=== PATIENT | female | born 1930 | race African-American/Black ===

== ENCOUNTER 2020-08-01 14:15 | Emergency (ER) | payer MEDICARE ==
[~2020-08-01] VITALS: Ht 152.4 cm; Wt 59.0 kg
[2020-08-01 14:16] VITALS: BP 152/90
[2020-08-01] MEDS ORDERED: Insulin Human Regular 100units/ml 3ml IV ONE (14:30)
--- NOTE | 2020-08-01 14:33 | Emergency Room Report ---
History of Present Illness General Chief Complaint: Syncope Source: Patient, Family Member, EMS Present Illness HPI Patient is an 89-year-old female brought in by EMS for syncopal episode. Patient had loss of consciousness at home. Was assisted to the ground by family member. Prior history of diabetes. She was having moderate headache. Had left brief loss of consciousness lasting several minutes. Was noted to have blood sugar that was measured as high does not know her medications. Allergies: Coded Allergies: No Known Allergies (Unverified , 08/01/20) COVID-19 Screening Contact w/high risk pt: No Experienced COVID-19 symptoms?: No COVID-19 Testing performed CAREER PROFESSIONAL: No Patient History Past Medical History: see triage record Last Menstrual Period: na Reviewed Nursing Documentation: PMH: Agreed; PSxH: Agreed Nursing Documentation-PMH Past Medical History: No History, Except For Hx Hypertension: Yes Hx Diabetes: Yes Review of Systems All Other Systems: limited - Noted by poor historian. Physical Exam Vital Signs Date Time Temp Pulse Resp B/P (MAP) Pulse Ox O2 Delivery O2 Flow Rate FiO2 08/01/20 14:12 98.1 68 19 152/90 (110) 99 Room Air Sp02 EP Interpretation: reviewed, normal General Appearance: no apparent distress, alert, GCS 15, Chronically Ill Head: atraumatic ENT: normal ENT inspection, hearing grossly normal, normal voice Neck: normal inspection, full range of motion, supple, no bony tend Respiratory: normal inspection, lungs clear, normal breath sounds, no respiratory distress, no retraction, no wheezing Cardiovascular #1: regular rate, rhythm, no edema Gastrointestinal: normal inspection, normal bowel sounds, non tender, soft, no guarding, no hernia Genitourinary: no CVA tenderness Musculoskeletal: normal inspection, back normal, normal range of motion Neurologic: alert, motor strength/tone normal, office equipment mechanic III-XII nml as tested, oriented x3, responsive, speech normal, normal inspection Psychiatric: normal inspection, judgement/insight normal, mood/affect normal Skin: no rash Procedures Critical Care Time Critical Care Time patient had a critical medical condition which untreated could potentially result in life or limb threatening injury. Total critical care time excluding procedures approximately 45 minutes. Medical Decision Making Diagnostic Impression: Primary Impression: Syncope Additional Impressions: Abnormal EKG Acute [place] ER Course Patient presented for syncopal episode. Differential diagnosis include was not limited to anemia, coronavirus infection, electrolyte normality, orthostatic hypotension, sepsis among others. EKG interpreted by me showed normal sinus rhythm with a rate of 66 ST elevation in leads V3 V4. Patient does not have any active chest pain however given the history of diabetes this was not necessarily reliable. EKG did show some evidence of possible anterior infarct and patient does have some septal and anterior Q waves. Patient started on IV fluids as well as IV insulin. [facility] was contacted for possible STEMI transfer. Chest x- ray showed bilateral hazy infiltrate with slight cardiomegaly. Patient was give n aspirin.Patient subsequently had an atrial flutter with rapid ventricular response was given IV Cardizem.Patient states that she would like CPR as well as intubation if needed. Patient stated that she would be okay with having cardiac catheterization procedure. Patient was discussed with Dr. Vidal who agreed to accept the patient for possible revascularization procedure. EKG Diagnostic Results Rate: normal Rhythm: NSR ST Segments: no acute changes Last Vital Signs Date Time Temp Pulse Resp B/P (MAP) Pulse Ox O2 Delivery O2 Flow Rate FiO2 08/01/20 14:12 98.1 68 19 152/90 (110) 99 Room Air Status: improved Disposition: SHORT-TERM HOSP Condition: Critical Jorge Elliott MD Aug 01, 2020 14:33
[2020-08-01] MEDS ORDERED: Aspirin Baby 81mg ONE (14:35)
[2020-08-01] MEDS ORDERED: dilTIAZem HCl 25mg/5ml Inj IVP ONE (14:45)
[2020-08-01] MEDS ORDERED: Aspirin Baby 81mg ORAL ONE (14:45)
[2020-08-01 15:04] VITALS: BP 128/66
[2020-08-01 15:06] LABS: HEMATOCRIT 44.7 % (37.0-47.0); HEMOGLOBIN 14.5 G/DL (12.0-16.0); MEAN CORPUSCULAR VOLUME 95 FL (80-99); PLATELET COUNT 170 K/UL (150-450); RED BLOOD COUNT 4.72 M/UL (4.20-5.40); RED CELL DISTRIBUTION WIDTH 12.8 % (11.6-14.8); WHITE BLOOD COUNT 14.6 K/UL (4.8-10.8)
--- NOTE | 2020-08-01 15:07 | Diagnostic Imaging Report ---
Indications: Syncopal episode, loss of consciousness Technique: Spiral acquisitions obtained through the brain. Angled axial and coronal 5 x 5 mm slices were reconstructed. Total dose length product 965 mGycm. CTDI vol(s) 53 mGy. Dose reduction achieved using automated exposure control Comparison: None. Findings: There is age-related enlargement of the ventricles and extra axial CSF spaces. There is periventricular deep white matter low-attenuation, consistent with chronic microvascular ischemic change. Old lacunar infarct is seen in the right basal ganglia. No acute intracranial hemorrhage or edema, mass effect, nor midline shift. Intact calvarium. Visualized orbits and sinuses are unremarkable. The mastoids are clear Impression: Chronic and age-related changes Negative for acute intracranial bleed or mass effect The CT scanner at [facility] is accredited by the [employer] and the scans are performed using protocols designed to limit radiation exposure to as low as reasonably achievable to attain images of sufficient resolution adequate for diagnostic evaluation.
[2020-08-01 15:18] LABS: ALANINE AMINOTRANSFERASE 18 U/L (12-78); ALBUMIN 3.4 G/DL (3.4-5.0); ALBUMIN/GLOBULIN RATIO 0.8 (1.0-2.7); ALKALINE PHOSPHATASE 83 U/L (46-116); ANION GAP 15 mmol/L (5-15); ASPARTATE AMINO TRANSFERASE 17 U/L (15-37); BILIRUBIN,TOTAL 0.4 MG/DL (0.2-1.0); BLOOD UREA NITROGEN 30 mg/dL (7-18); CALCIUM 9.7 MG/DL (8.5-10.1); CARBON DIOXIDE 22 MMOL/L (21-32); CHLORIDE 98 MMOL/L (98-107); CREATININE 1.5 MG/DL (0.55-1.30); SODIUM 135 MMOL/L (136-145)
[2020-08-01 15:22] VITALS: BP 122/75
--- NOTE | 2020-08-01 15:49 | Diagnostic Imaging Report ---
Indication: Abnormal chest sounds Technique: One view of the chest Comparison: none Findings: Ill-defined and streaky opacities are seen in the mid and lower lungs bilaterally. The heart is borderline enlarged. The pleural spaces are clear. Impression: Bilateral parenchymal opacities, could represent bilateral pneumonia. Mild pulmonary edema also possibility. Correlate with clinical findings
== END 2020-08-01 15:22 | disposition short-term general hospital (02) ==
LOC: EDBD 14:15 → EMR 15:14
DX: I21.9 Acute myocardial infarction, unspecified (principal); R55 Syncope and collapse; R94.31 Abnormal electrocardiogram [ECG] [EKG]; E11.9 Type 2 diabetes mellitus without complications; I10 Essential (primary) hypertension
CPT/HCPCS: 36415; 70450; 71045; 80053; 82009; 83690; 83735; 84484; 85007; 85025; 93005; 96361; 96374; 96375; 99291; J1815; J7030; U0002